=== PATIENT | female | born 1930 | race Asian ===

== ENCOUNTER 2016-09-29 22:24 | Emergency (ER) | payer OTHER ==
[~2016-09-29] VITALS: Ht 147.3 cm; Wt 49.0 kg
[~2016-09-29 22:24] MED LIST: AMLO2.5T PO; ASPEC81 PO; ATEN-173 PO; CLOP1TAB15 PO; EZET10TA38 PO; HYDR-713 PO; LEVO-366 PO; LEVO100T84 PO; LYR50 PO; NATALCARE PLUS PO; TRIA37.5 PO; ZNTT/150 PO; [UNRECOGNIZED DRUG - OTHER] PO
[2016-09-29 22:33] VITALS: Ht 147.3 cm; Wt 49.0 kg
[2016-09-29] MEDS ORDERED: LEVO100T PO (22:57)
[2016-09-29] MEDS ORDERED: ASPI81TA21 PO (22:57)
[2016-09-29] MEDS ORDERED: CHLO4TAB20 PO (23:00)
[2016-09-29] MEDS ORDERED: GABA-113 PO (23:00)
[2016-09-29] MEDS ORDERED: PRLSR20 PO (23:00)
[2016-09-29] MEDS ORDERED: ACET-749 PO (23:00)
[2016-09-29] MEDS ORDERED: ALUMINUM/MAGNESIUM SUSP 30 ML UDC PO STA (23:09)
[2016-09-29] MEDS ORDERED: LIDOCAINE HCL 2% VISC SOLN 20 ML UDC PO STA (23:09)
[2016-09-29 23:12] LABS: BASO % 0.1 %; BASO ABS # 0.02 K/uL (0-0.2); COMPLETE YES; EOS % 0.6 %; HEMATOCRIT 42.2 % (37-47); IG% 0.2 %; LYMPH % 14.1 %; LYMPH ABS # 1.89 K/uL (1.2-3.4); MEAN CELL VOLUME 83.2 fL (80-100); MEAN CORPUSCULAR HEMOGLOBIN 28.8 pg (25-34); MEAN CORPUSCULAR HGB CONC 34.6 g/dl (32-36); MEAN PLATELET VOLUME 9.8 fL (7.4-10.4); MONO % 5.3 %; NEUT % 79.7 %; PLATELET COUNT 352 K/uL (130-400); RED BLOOD COUNT 5.07 M/uL (4.2-5.4); WHITE BLOOD COUNT 13.38 K/uL (4.8-10.8)
[2016-09-29 23:20] LABS: ALT/SGPT 15 U/L (12-78); BLOOD UREA NITROGEN 9 mg/dl (7-18); BUN/CREATININE RATIO 11.3 (10-20); CALCIUM 9.7 mg/dl (8.5-10.1); CARBON DIOXIDE 27 mmol/L (21-32); CHLORIDE 102 mmol/L (98-107); CREATININE 0.79 mg/dl (0.60-1.20); GLUCOSE 125 mg/dl (70-99); POTASSIUM 3.7 mmol/L (3.5-5.1); SODIUM 138 mmol/L (136-145)
[2016-09-29 23:23] LABS: ALKALINE PHOSPHATASE 103 U/L (45-117); AST/SGOT 16 U/L (15-37)
[2016-09-29] MEDS ORDERED: LEVO75TA PO (23:25)
[2016-09-29] MEDS ORDERED: MULT1CAP16 PO (23:25)
[2016-09-29] MEDS ORDERED: CALC-393 PO (23:25)
[2016-09-29] MEDS ORDERED: HYDR-5688 PO (23:25)
[2016-09-29] MEDS ORDERED: TRIATAB3 PO (23:25)
[2016-09-29] MEDS ORDERED: OMEP20CA9 PO (23:25)
[2016-09-29] MEDS ORDERED: IBUP-1277 PO (23:25)
[2016-09-30 00:42] LABS: URINE APPEARANCE CLOUDY (CLEAR); URINE BILIRUBIN NEG (NEG); URINE COLOR YELLOW; URINE NITRITE NEG (NEG); URINE SPECIFIC GRAVITY 1.015 (1.000-1.030); UROBILINOGEN NEG (NEG); ZZUR CULT IF INDIC CLEAN CATCH NO
[2016-09-30 00:54] LABS: MANUAL MICROSCOPIC REQUIRED? NO; REVIEW REQ? NO
--- NOTE | 2016-09-30 01:30 | EMERGENCY ROOM VISIT NOTE ---
ED Visit Note First contact with patient: 22:56 This Patient was discussed with the physician outpatient physical therapist assistant, AC Ontiveros. The pertinent historical and physical exam findings were confirmed. I agree with the studies ordered and with the interpretations of these studies. I agree with the disposition and care plan.
[2016-09-30] MEDS ORDERED: PANT40TA PO (01:44)
[2016-09-30 01:53] VITALS: BP 150/98; PULSE 96; TEMP 36.5; O2SAT 95
--- NOTE | 2016-09-30 04:40 | EMERGENCY ROOM VISIT NOTE ---
History First contact with patient: 22:56 Chief Complaint: ABDOMINAL PAIN Stated Complaint: UPPER GASTRIC PAIN Nursing Triage Summary: Sudden onset of epigastric pain at 1600 today. Patient then had 5 episodes of vomitting. History of Present Illness The patient is a 86 year old female who presents to the Emergency Room with complaints of epigastric discomfort with nausea and vomiting for the past few hours after eating [place] vegetables and bread. Patient does have reflux. She takes omeprazole 20 mg. Patient denies chest pain, dyspnea, fever, chills, back pain, numbness, tingling, weakness, prior cardiac disease. No other complaints per patient. Pain 4 out of 10. Nothing makes it better or worse. Normal EGD in the past. No prior heart disease. Review of Systems See HPI for pertinent positives & negatives. A total of 10 systems reviewed and were otherwise negative. Past Medical/Surgical History Hypertension, GERD, hypothyroidism Social History Smoking Status: Never Smoker Smokeless Tobacco Use: No Alcohol Use: none Drug Use: none Housing Status: lives with family Current/Historical Medications Scheduled Aspirin Enteric Coated (Ecotrin Or Generic), 81 MG PO DAILY Calcium Carbonate (Calcium), 600 MG PO DAILY Levothyroxine Sodium (Synthroid), 75 MCG PO DAILY Multiple Vitamins W/ Minerals (Multi Complete), 11 CAP PO DAILY Omeprazole (Prilosec), 20 MG PO DAILY Pantoprazole Sodium (Protonix), 40 MG PO DAILY Triamterene/Hctz (Triamterene/Hctz 37.5-25MG), 1 TAB PO DAILY Scheduled PRN Hydrocodone/Acetaminophen 5MG/325MG ([place] 5MG/325MG), 1 TABLET PO Q6H PRN for Pain Ibuprofen (Advil), 200 MG PO DIRECTED PRN for Pain Allergies Coded Allergies: No Known Allergies (Unverified , 09/29/16) Physical Exam Vital Signs Date Time Temp Pulse Resp B/P (MAP) Pulse Ox O2 Delivery O2 Flow Rate FiO2 09/30/16 01:53 36.5 96 16 150/98 95 09/30/16 01:43 96 16 150/98 95 Room Air 09/30/16 00:52 101 16 145/82 96 Room Air 09/29/16 23:40 108 16 142/100 95 Room Air 09/29/16 22:44 107 09/29/16 22:33 36.5 103 16 129/96 95 Room Air Pain Rating (0-10): 0 Physical Exam VITALS: Vitals are noted on the nurse's note and reviewed by myself. Vital signs stable. GENERAL: Pleasant female, in no acute distress, nondiaphoretic, well-developed well-nourished. SKIN: The skin was without rashes, erythema, edema, or bruising. There is no tenting of the skin. Capillary reflex less than 2 seconds. HEAD: Normocephalic atraumatic. EARS: External auditory canals clear, tympanic membranes pearly lima without erythema or effusion bilaterally. EYES: Pupils equal round and reactive to light and accommodation. Conjunctivae without injection, sclerae without icterus. Extraocular movements intact. NOSE: Patent, turbinates without inflammation or discharge. MOUTH: Mucous membranes moist. Pharynx without erythema or exudate. Uvula midline. Airway patent. Tongue does not deviate. NECK: Supple without nuchal rigidity. No lymphadenopathy. No thyromegaly. Cervical spine is nontender. No JVD. HEART: Regular rate and rhythm LUNGS: Clear to auscultation bilaterally without wheezes, rales or rhonchi. No dullness to percussion. No retractions or accessory muscle use. ABDOMEN: Positive bowel sounds x 4. Normal tympanic percussion. Soft, nontender, without masses or organomegaly. Brewer sign negative. No guarding or rebound tenderness. No CVA tenderness MUSCULOSKELETAL: No muscle atrophy, erythema, or edema noted. NEURO: Patient was alert and oriented to person place and time. Normal sensation to light and sharp touch. No focal neurological deficits. Medical Decision & Procedures Laboratory Results 09/29/16 22:15 Red Blood Count 5.07, Mean Corpuscular Volume 83.2, Mean Corpuscular Hemoglobin 28.8, Mean Corpuscular Hemoglobin Concent 34.6, Mean Platelet Volume 9.8, Neutrophils (%) (Auto) 79.7, Lymphocytes (%) (Auto) 14.1, Monocytes (%) (Auto) 5.3, Eosinophils (%) (Auto) 0.6, Basophils (%) (Auto) 0.1, Neutrophils # (Auto) 10.65, Lymphocytes # (Auto) 1.89, Monocytes # (Auto) 0.71, Eosinophils # (Auto) 0.08, Basophils # (Auto) 0.02 09/29/16 22:15 Test 09/29/16 22:15 09/29/16 23:55 White Blood Count 13.38 K/uL (4.8-10.8) Red Blood Count 5.07 M/uL (4.2-5.4) Hemoglobin 14.6 g/dL (12.0-16.0) Hematocrit 42.2 % (37-47) Mean Corpuscular Volume 83.2 fL (80-100) Mean Corpuscular Hemoglobin 28.8 pg (25-34) Mean Corpuscular Hemoglobin Concent 34.6 g/dl (32-36) Platelet Count 352 K/uL (130-400) Mean Platelet Volume 9.8 fL (7.4-10.4) Neutrophils (%) (Auto) 79.7 % Lymphocytes (%) (Auto) 14.1 % Monocytes (%) (Auto) 5.3 % Eosinophils (%) (Auto) 0.6 % Basophils (%) (Auto) 0.1 % Neutrophils # (Auto) 10.65 K/uL (1.4-6.5) Lymphocytes # (Auto) 1.89 K/uL (1.2-3.4) Monocytes # (Auto) 0.71 K/uL (0.11-0.59) Eosinophils # (Auto) 0.08 K/uL (0-0.5) Basophils # (Auto) 0.02 K/uL (0-0.2) RDW Standard Deviation 39.7 fL (36.4-46.3) RDW Coefficient of Variation 13.1 % (11.5-14.5) Immature Granulocyte % (Auto) 0.2 % Immature Granulocyte # (Auto) 0.03 K/uL (0.00-0.02) Anion Gap 9.0 mmol/L (3-11) Est Creatinine Clear Calc Drug Dose 32.4 ml/min Estimated GFR () 78.0 Estimated GFR (Non- 67.3 BUN/Creatinine Ratio 11.3 (10-20) Calcium Level 9.7 mg/dl (8.5-10.1) Total Bilirubin 0.4 mg/dl (0.2-1) Aspartate Amino Transf (AST/SGOT) 16 U/L (15-37) Alanine Aminotransferase (ALT/SGPT) 15 U/L (12-78) Alkaline Phosphatase 103 U/L (45-117) Troponin I < 0.015 ng/ml (0-0.045) Total Protein 7.6 gm/dl (6.4-8.2) Albumin 3.8 gm/dl (3.4-5.0) Globulin 3.8 gm/dl (2.5-4.0) Albumin/Globulin Ratio 1.0 (0.9-2) Lipase 148 U/L (73-393) Urine Color YELLOW Urine Appearance CLOUDY (CLEAR) Urine pH 8.0 (4.5-7.5) Urine Specific [place] 1.015 (1.000-1.030) Urine Protein NEG (NEG) Urine Glucose (UA) NEG (NEG) Urine Ketones NEG (NEG) Urine Occult Blood NEG (NEG) Urine Nitrite NEG (NEG) Urine Bilirubin NEG (NEG) Urine Urobilinogen NEG (NEG) Urine Leukocyte Esterase NEG (NEG) Urine WBC (Auto) 1-5 /hpf (0-5) Urine RBC (Auto) 0-4 /hpf (0-4) Urine Hyaline Casts (Auto) 1-5 /lpf (0-5) Urine Epithelial Cells (Auto) 10-20 /lpf (0-5) Urine Bacteria (Auto) NEG (NEG) Medications Administered Medications (Trade) Dose Ordered Sig/Vivek Route Start Time Stop Time Status Last Admin Dose Admin Lidocaine HCl (Viscous Lidocaine 2% Soln) 10 ml NOW STAT PO 09/29/16 23:09 09/29/16 23:10 DC 09/29/16 23:20 10 ML Al Hydroxide/Mg Hydroxide (Maalox Susp) 30 ml NOW STAT PO 09/29/16 23:09 09/29/16 23:10 DC 09/29/16 23:20 30 ML ED Course Prior records/ancillary studies reviewed. Triage Nursing notes reviewed. Additional history obtained from family. The patient's history was concerning for abdominal pain. Differential diagnosis: Etiologies such as appendicitis, diverticulitis, PUD, cardiac, biliary pathology , UTI, pancreatitis, obstruction, mesenteric ischemia, aortic pathology, infections, inflammatory bowel disease, renal colic, as well as others were entertained. Physical examination findings: As above. ER treatment provided: GI cocktail On reassessment the patient felt better. Diagnostics interpreted by me: ECG: Normal sinus, left anterior vesicular block, right bundle branch block, no acute ST changes, T-wave inversions in lead 3, aVF, V1 V2 V3 and V4 V5. Rate of 104. Repeat EKG is unchanged. The labs revealed 2 troponins that are negative that are 2 hours apart Imaging studies: Chest x-ray with no acute consolidation, pneumothorax or free air per my interpretation Ultrasound negative for cholecystitis Exam and history seem consistent with reflux. Patient felt 100 percent after the GI cocktail. Her symptoms are completely resolved and is requesting to leave. She's had ongoing symptoms for greater than 8 hours. She has 2 troponins that are negative there 2 hours apart. Unchanged EKG. She is not from this area. I was unable to obtain a recent EKG. Patient was advised to follow-up family care doctor in a few days or here in the ER sooner for chest pain, difficulty breathing, worsening signs or symptoms or as needed. She was started on a higher dose PPI for the next 2 weeks and then advised to resume her normal dose. By the evaluation outlined above emergent etiologies such as appendicitis, diverticulitis, PUD, biliary pathology, UTI, pancreatitis, obstruction, mesenteric ischemia, aortic pathology, infections, inflammatory bowel disease, renal colic, as well as others were deemed relatively unlikely. The pt informed about the findings as listed above. All questions were answered and pleased with the treatment. Return instructions were outlined and the patient was discharged in stable condition. Outpatient prescription management: Protonix Referral: The patient was referred back to their primary care physician for follow-up in 2 to 3 days for a recheck of the current condition. Case reviewed with my attending Medical Decision As above Impression Primary Impression: Epigastric pain Additional Impression: GERD (gastroesophageal reflux disease) Departure Information Dispostion Home / Self-Care Condition GOOD Prescriptions Pantoprazole Sodium (PROTONIX) 40 Mg Tab 40 MG PO DAILY for 14 Days, #14 TAB Prov: Salima Black PA-C 09/30/16 Forms HOME CARE DOCUMENTATION FORM, IMPORTANT VISIT INFORMATION Patient Instructions GERD, My [facility] Additional Instructions Omeprazole 40 m tablet daily for next 2 weeks. Take this on an empty stomach. Then resume your 20 mg of omeprazole. Try Maalox or Zantac for breakthrough symptoms for reflux. Avoid large meals. Avoid acidic foods. Rest and drink plenty of fluids as tolerated. Continue current medications. Avoid strenuous activities and anything that worsens your pain. Resume normal activities once your symptoms resolve. Return to the ER immediately for worsening or persistent chest pain, abdominal pain, black or blood in your stools, vomiting, fevers, chest pains, difficulty breathing, worsening of your condition, or as needed. Follow up with your primary physician in 2-3 days for a recheck of your current condition. Problem Qualifiers
--- NOTE | 2016-09-30 07:00 | DIAGNOSTIC IMAGING REPORT ---
BILIARY ULTRASOUND CLINICAL HISTORY: Epigastric pain COMPARISON STUDY: No previous studies for comparison. FINDINGS: The pancreas appears normal as visualized. No focal hepatic masses are visualized. The common bile duct is mildly dilated measuring 9 mm. There is no right-sided hydronephrosis. There is a 15 mm upper pole right renal cyst. The gallbladder surgically absent. IMPRESSION: 1. Surgically absent gallbladder 2. 9 mm common bile duct Electronically signed by: Drew Mraie M.D. 09/30/2016 6:59 AM Dictated Date/Time: 09/30/2016 6:58 AM
--- NOTE | 2016-09-30 07:08 | DIAGNOSTIC IMAGING REPORT ---
CHEST ONE VIEW PORTABLE CLINICAL HISTORY: epigastric pain COMPARISON STUDY: No previous studies for comparison. FINDINGS: The cardiac and mediastinal contours are normal. There is no evidence of focal pulmonary consolidation. There is no evidence of failure. No pleural effusions are visualized.[ No free intraperitoneal air is visualized. IMPRESSION: No active disease in the chest. Electronically signed by: Drwe Marie M.D. 09/30/2016 7:06 AM Dictated Date/Time: 09/30/2016 7:06 AM
== END 2016-09-30 01:53 | disposition home or self-care (01) ==
LOC: EDBD 22:24 → C.EDB 22:27
DX: K21.9 Gastro-esophageal reflux disease without esophagitis (principal); Z79.899 Other long term (current) drug therapy; I10 Essential (primary) hypertension; E03.9 Hypothyroidism, unspecified; Z79.82 Long term (current) use of aspirin